=== PATIENT | female | born 1940 | race Caucasian/White ===

== ENCOUNTER 2017-04-08 10:31 | Inpatient (IN) | payer MEDICARE ==
[2017-04-08] MEDS ORDERED: Aspirin Low Dose CHEW TAB* 81 MG PO ONE (10:58)
--- NOTE | 2017-04-08 11:26 | RAD ---
HISTORY: Chest pain, shortness of breath COMPARISONS: January 21, 2015 VIEWS:1: Single frontal portable view of the chest at 11:00 AM FINDINGS: LINES AND TUBES: None. CARDIOMEDIASTINAL SILHOUETTE: The cardiomediastinal silhouette is normal for portable technique. PLEURA: The costophrenic angles are sharp. No pleural abnormalities are noted. LUNG PARENCHYMA: The lungs are clear. ABDOMEN: The upper abdomen is clear. There is no subphrenic gas. Surgical clips are noted within the upper abdomen. BONES AND SOFT TISSUES: No bone or soft tissue abnormalities are noted. IMPRESSION: NO ACTIVE CARDIOPULMONARY DISEASE.
[2017-04-08 11:32] LABS: Hematocrit 42 % (35-47); Hemoglobin 14.1 g/dl (12.0-16.0); Mean Corpuscular HGB Conc 33 g/dl (31-36); Mean Corpuscular Hemoglobin 26 pg (27-31); Mean Corpuscular Volume 79 fL (80-97); Mean Platelet Volume 10 um3 (7.4-10.4); Red Blood Count 5.33 10^6/ul (4.0-5.4); Red Cell Distribution Width 15 % (10.5-15); White Blood Count 9.1 10^3/ul (3.5-10.8)
[2017-04-08] MEDS ORDERED: Nitroglycerin TAB 0.4 MG* 0.4 MG TAB SL ONE (11:40)
[2017-04-08 11:47] LABS: Albumin 4.4 g/dL (3.2-5.2); BUN/Creatinine Ratio 15.7 (8-20); EGFR African American 104.4 (>60); EGFR Non-African American 81.1 (>60); Globulin 3.1 g/dL (2-4); Potassium 3.8 mmol/L (3.5-5.0); Total Protein 7.5 g/dL (6.4-8.9)
[2017-04-08 11:50] LABS: Troponin I 0.01 ng/mL (<0.04)
[2017-04-08] MEDS ORDERED: Iohexol 350* (CONTRAST) 500 ML MDV IV ONE (12:11)
[2017-04-08] MEDS ORDERED: Ondansetron INJ* 2 MG/ML VIAL IV ONE (12:37)
--- NOTE | 2017-04-08 13:08 | RAD ---
HISTORY: Chest pain, aortic aneurysm COMPARISONS: CT dated July 30, 2009 TECHNIQUE: Multiple contiguous axial CT scans were obtained of the chest, abdomen, and pelvis after the administration of intravenous contrast. Coronal and sagittal multiplanar reformations are submitted for review.. Oral contrast was not administered. 3-D volumetric reconstructions are also submitted of the aorta FINDINGS: CHEST NECK AND THYROID: The lower neck and thyroid are unremarkable. CHEST WALL: There is no lower cervical, axillary, or supraclavicular lymphadenopathy by size criteria. HEART AND PERICARDIUM: The heart is unremarkable. AORTA AND PULMONARY VASCULATURE: There is mild atherosclerosis of the descending thoracic aorta. There is There is minimal dilatation or intimal flap. The pulmonary vasculature is unremarkable. MEDIASTINUM: There is no mediastinal lymphadenopathy by size criteria. FRANKI: There is no hilar lymphadenopathy by size criteria. AIRWAY AND ESOPHAGUS: There is moderate sized hiatal hernia LUNG PARENCHYMA: The lungs are clear. PLEURA: No pleural abnormalities are noted. BONES AND SOFT TISSUES: Mild degenerative changes are noted ABDOMEN/PELVIS: LIVER: The liver is normal in shape, size, contour, and attenuation. BILE DUCTS: There is no intrahepatic or extrahepatic biliary dilatation. GALLBLADDER: The gallbladder is normal, without pericholecystic inflammatory change. PANCREAS: The pancreas is normal, without mass or ductal dilatation. SPLEEN: Normal in size and appearance. UPPER GI TRACT: Evaluation of the gastrointestinal tract is limited by incomplete gastric distention. As noted above, there is a moderate sized hiatal hernia SMALL BOWEL \T\ MESENTERY: The small bowel is normal in contour, course, and caliber. There is no obstruction or dilatation. COLON: There are multiple diverticula of the distal colon. There is no pericolonic inflammatory change. ADRENALS: Normal bilaterally. KIDNEYS: There are multiple cysts of the kidneys bilaterally. There is no appreciable hydronephrosis or nephrolithiasis BLADDER: The bladder is collapsed and is not well evaluated PELVIC ORGANS: The pelvic organs are not seen. There is a complex cystic lesion of the right hemipelvis measuring up to 7 cm in size with internal septation. This is persistent when compared to July 30, 2009. AORTA: There is calcific atherosclerotic disease of the abdominal aorta and its branches, without aneurysmal dilatation IVC: Unremarkable LYMPH NODES: There is no lymphadenopathy by size criteria. ABDOMINAL WALL: There is no evidence for abdominal wall hernia. BONES: Mild degenerative changes are noted OTHER: None IMPRESSION: 1. NO AORTIC DISSECTION OR ANEURYSMAL DILATATION. 2. MILD ATHEROSCLEROSIS. 3. HIATAL HERNIA. 4. THERE IS A 7 CM CYSTIC LESION OF THE RIGHT HEMIPELVIS, PERSISTENT FROM 2008. THE DIFFERENTIAL INCLUDES CYSTADENOMA VERSUS CYSTADENOCARCINOMA. RECOMMEND CONSIDERATION OF GYNECOLOGIC CONSULTATION. 5. DIVERTICULOSIS
[2017-04-08] MEDS ORDERED: NS 0.9% 1000 ML* 1,000 ML IV ONE (13:56)
[2017-04-08] MEDS ORDERED: Ondansetron INJ* 2 MG/ML VIAL IV PRN (16:03)
[2017-04-08] MEDS ORDERED: Acetaminophen TAB* 325 MG PO PRN (16:04)
[2017-04-08] MEDS ORDERED: Nitroglycerin 2% OINT* 1 GM PAK TOPICAL ONE (16:07)
[2017-04-08 16:15] LABS: Magnesium 2.2 mg/dL (1.9-2.7)
[2017-04-08 16:22] LABS: TSH (Thyroid Stimulating Horm) 2.09 mcIU/mL (0.34-5.60)
[2017-04-08] MEDS: Enoxaparin(*) 40 MG/0.4 ML SYR SUBCUT SCH (16:46)
[2017-04-08] MEDS ORDERED: Carvedilol TAB* 25 MG PO SCH (21:00)
[2017-04-08] MEDS ORDERED: Simvastatin TAB(NF) 20 MG TAB PO SCH (21:00)
[2017-04-08] MEDS: Metoprolol Tartrate TAB* 50 mg PO SCH (21:11)
[2017-04-08] MEDS: Mometasone 220 MCG MDI INH SCH (21:24)
--- NOTE | 2017-04-08 23:08 | HP ---
ADDENDUM NOW INCLUDED ON THIS REPORT CC: Dr. Mumtaz Yoder MD; Dr. Mcelroy, [facility] * HISTORY AND PHYSICAL: DATE OF ADMISSION: 04/08/17 PROVIDER: Lashawn Greene NP ATTENDING PHYSICIAN: Maxine Cannon MD * (as dictated by Lashawn Greene NP) PRIMARY CARE PROVIDER: Dr. Mumtaz Yoder. PRIMARY FITNESS SALES ASSOCIATE: Dr. Mcelroy. CHIEF COMPLAINT: Chest pain. HISTORY OF PRESENT ILLNESS: Ms. Roman is a 76-year-old female who presented to the ER today with concern for chest pain. She states that the pain started earlier this morning in the midchest and she describes it as tightness. The pain progressed to the feeling of the patient describes as "stabbing between her shoulder blades." The patient has been constant. The patient reports a history of chest pain that comes and goes, but this pain did not let up. At this point, she decided to come into the ER for further evaluation. Here in the ER, she received aspirin and nitroglycerin, which has improved her chest pain, but not completely eradicated. She also describes a feeling of tightness in her throat, which felt like her throat was closing up, dizziness, more so with movement, diaphoresis, nausea and near syncope. The patient denies any history of blood clots, but does endorse a history of coronary artery disease, hypertension, hyperlipidemia. She also reports over the past few months that she has had worsening activity tolerance requiring her to take multiple breaks. Her daughter notes that she has difficulty putting on her shoes without getting winded. She reports that sleeps sitting up in a chair and she reports a chronic lower extremity swelling that is intermittent. She reports decreased appetite as of recently. She denies any wheezing. She denies any cold or flu symptoms or fevers. She does state that she has had a 9- pound weight loss over the past several months and has most recently been weighed at 150. She had this weight loss, but was not attempting to lose weight. This morning, she did endorse some palpitations, that of note she did arrive to the ER in atrial fibrillation with a rate of 145. She denies any dyspnea, cough. She denies any abdominal pain, nausea, vomiting, or diarrhea. She does have constipation on occasion. She denies any dysuria, but does report that she gets recurrent UTIs, but none recently. She follows with Urology for this. Denies any focal weakness, change of the vision, hearing, swallowing, joint pains, muscle pains or rashes. Here in the ER again, the patient's EKG was significant for atrial fibrillation with a rate of 145. Her initial troponin was 0.01. She did have a chest x-ray , which showed no active cardiopulmonary disease, and a CT of the chest, abdomen and pelvis with the impression of: 1. No aortic dissection or aneurysmal dilatation. 2. Mild atherosclerosis. 3. Hiatal hernia. 4. 7 cm cystic lesion of the right hemipelvis, persistent from 2008. 5. Diverticulosis. The patient notably did convert into sinus rhythm while she is here and is currently in sinus rhythm with some PVCs at a rate of 60. PAST MEDICAL HISTORY: Includes: 1. Coronary artery disease. 2. Hypertension. 3. Hyperlipidemia. 4. GERD. 5. History of ablation secondary to atrial fibrillation. PAST SURGICAL HISTORY: Includes: 1. Appendectomy. 2. Cataract surgery. 3. Hiatal hernia. 4. Tonsillectomy. 5. Hysterectomy. ALLERGIES: Include PENICILLINS, CODEINE, TRAMADOL and MUSHROOMS. FAMILY HISTORY: The patient reports a mother, who had an GA and 2 brothers with heart disease, one brother is status post CABG and pacemaker placement. She reports at 49, has had a CVA. Mother also had an ovarian cancer and her father had kidney cancer. SOCIAL HISTORY: She denies former recurrent tobacco use. She reports very seldom alcohol use and denies any history of recreational drug use. She lives alone and is independent with her ADLs. She has no current home services. Her family does check in on her. Her daughter, Trang Roman, is her healthcare proxy. She can be reached at [phone]. REVIEW OF SYSTEMS: As per HPI. PHYSICAL EXAMINATION GENERAL: Ms. Roman is a 76-year-old female, who is lying in the ED stretcher, in no acute distress. VITAL SIGNS: Temperature 98.3, heart rate 60, respiratory rate 16, blood pressure 168/64 and O2 saturation 99% on room air. HEENT: Head is atraumatic, normocephalic. Face is symmetrical. Pupils are equal, round, reactive to light. Extraocular movements are intact Sclerae are anicteric. There is no oropharyngeal erythema or exudate. Mucous membranes appear moist. NECK: Supple, no lymphadenopathy noted. No carotid bruits. No JVD noted. RESPIRATORY: Lungs are clear to auscultation. No accessory muscle use. CARDIAC: S1, S2 heart sounds. Regular rate and rhythm. No murmurs, rubs or gallops. There is no peripheral edema at this time. Distal pulses are 2+ and equal bilaterally. ABDOMEN: Soft, nontender, nondistended. Bowel sounds present times all 4 quadrants. MUSCULOSKELETAL: No clubbing or cyanosis present. The patient appears to have full range of motion in all extremities. SKIN: Grossly intact. NEUROLOGIC: Cranial nerves II through XII are grossly intact. The patient moves all extremities. No new focal deficits. Lower extremities are intact to light touch. PSYCH: She is alert and oriented x3 and a good historian. Affect is appropriate. LABORATORY DATA AND DIAGNOSTIC STUDIES: CBC: WBC 9.1, hemoglobin 14.1, hematocrit 42, platelet count 219. D-dimer 230. CMP: Sodium 140, potassium 3.8, chloride 107, carbon dioxide 24, BUN 11, creatinine 0.7, glucose 134, lactic acid 1.6. Calcium 10.0. Total bilirubin 1, AST 17, ALT 12, alk phos 90. Troponin 0.01 and then 0.03. Albumin is 4.4. Chest x-ray, EKG, and CTA, chest abdomen and pelvis as per above. ASSESSMENT AND PLAN: Ms. Roman is a 76-year-old female who presents today with concern for chest pain. She will be admitted to the telemetry for plans as follows: 1. Chest pain. This may be secondary to the patient's rapid atrial fibrillation, which has since resolved; however, she does still has some residual chest pain and with her story, there was concern for acute coronary syndrome. We will continue to trend her troponins. Recheck an EKG and obtain echocardiogram tomorrow and a stress test on Monday. I will give the patient nitroglycerin ointment to the chest to eradicate her chest pain and continue to monitor her on telemetry. There is concern for cardiomyopathy, heart failure given that she does have a history of atrial fibrillation. Although, the patient does seem to realize when she is in atrial fibrillation; however, her story is concerning for increased activity intolerance, orthopnea, and near syncopal episodes. We will continue her on a heart healthy diet. The patient does state that she follows a low sodium diet at home. 2. History of atrial fibrillation, currently in sinus rhythm. The patient self converted. We are attempting to obtain her home medications via her pharmacy. I do see that she may have been on carvedilol, which I will restart and we will update her medications once confirmed. The patient states that she is not on chronic anticoagulation. 3. Hypertension. Continue home medications once confirmed. The patient is mildly hypertensive at this time. 4. Hyperlipidemia. Continue statin once confirmed dosing. We will recheck a lipid profile in the morning. 5. Gastroesophageal reflux disease. Continue PPIs. 6. History of coronary artery disease. The patient denies any history of stents. Continue aspirin and beta-minnie and statins home medications confirmed. 7. FEN. The patient is ordered a heart healthy diet. 8. DVT prophylaxis. Subcu Lovenox. 9. Code status. The patient is a full code. TIME SPENT: Time spent on this admission was approximately 60 minutes, more than half that time was spent [id number] with the patient obtaining history and physical, performing physical examination and reviewing plan of care. Plan of care was also reviewed with my attending, Dr. Cannon, who is in agreement. LASHAWN GREENE NP ADDENDUM: HOME MEDICATIONS: 1. Omeprazole 20 mg daily. 2. Metoprolol tartrate 50 mg t.i.d. 3. Fluticasone Diskus 2 puffs inhaled b.i.d. 4. Simvastatin 40 mg at bedtime. 5. Rosuvastatin 20 mg at 1700. 6. Potassium chloride 20 mEq daily. 7. Enalapril 10 mg daily. 8. Diltiazem 240 mg daily. LASHAWN GREENE NP [id number]/[facility] #: [id number]/CPS #: [id number] JESÚS
[2017-04-09 00:12] LABS: Urine Bacteria Absent (Absent); Urine Bilirubin Negative (Negative); Urine Glucose 1+(50 mg/dL) (Negative); Urine Nitrite Negative (Negative)
--- NOTE | 2017-04-09 01:27 | HP ---
HISTORY AND PHYSICAL:* ADDENDUM: HOME MEDICATIONS: 1. Omeprazole 20 mg daily. 2. Metoprolol tartrate 50 mg t.i.d. 3. Fluticasone Diskus 2 puffs inhaled b.i.d. 4. Simvastatin 40 mg at bedtime. 5. Rosuvastatin 20 mg at 1700. 6. Potassium chloride 20 mEq daily. 7. Enalapril 10 mg daily. 8. Diltiazem 240 mg daily. LASHAWN GREENE, CNC LAT[employer] MACHINIST [id number]/[facility] #: [id number] JESÚS
[2017-04-09 05:11] LABS: Hematocrit 33 % (35-47); Mean Corpuscular HGB Conc 33 g/dl (31-36); Mean Corpuscular Hemoglobin 27 pg (27-31); Mean Corpuscular Volume 80 fL (80-97); Mean Platelet Volume 10 um3 (7.4-10.4); Red Blood Count 4.12 10^6/ul (4.0-5.4); Red Cell Distribution Width 15 % (10.5-15); White Blood Count 8.7 10^3/ul (3.5-10.8)
[2017-04-09 05:27] LABS: Calcium 8.9 mg/dL (8.6-10.3); EGFR African American 88.2 (>60); EGFR Non-African American 68.6 (>60); HDL Cholesterol 22.9 mg/dL; Potassium 3.8 mmol/L (3.5-5.0)
[2017-04-09] MEDS: Omeprazole CAP* 20 MG PO SCH (08:12)
[2017-04-09] MEDS: Enalapril TAB* 5 MG PO SCH (08:12)
[2017-04-09] MEDS: Aspirin Low Dose CHEW TAB* 81 MG PO SCH (08:12)
[2017-04-09] MEDS: Metoprolol Tartrate TAB* 50 mg PO SCH ×3 (08:12→20:43)
[2017-04-09] MEDS: Potassium Chlor TAB* 20 MEQ TAB.ER PO SCH (08:12)
--- NOTE | 2017-04-09 08:52 | PN ---
Subjective Date of Service: 04/09/17 Interval History: No more palpitations or chest tightness. Feels much better. No SOB. No new c/ o. Objective Active Medications: Acetaminophen (Tylenol Tab*) 650 mg PO Q4H PRN PRN Reason: FEVER/PAIN Aspirin (Aspirin Low Dose Tab*) 81 mg PO DAILY [facility] Last Admin: 04/09/17 08:12 Dose: 81 mg Atorvastatin Calcium (Lipitor*) 40 mg PO 1700 [facility] Diltiazem HCl (Cardizem Cd Cap*) 240 mg PO DAILY [facility] Last Admin: 04/09/17 08:12 Dose: 240 mg Enalapril Maleate (Vasotec Tab*) 10 mg PO DAILY [facility] Last Admin: 04/09/17 08:12 Dose: 10 mg Enoxaparin Sodium (Lovenox(*)) 40 mg SUBCUT Q24H [facility] Last Admin: 04/08/17 16:46 Dose: 40 mg Metoprolol Tartrate (Lopressor Tab*) 50 mg PO TID [facility] Last Admin: 04/09/17 08:12 Dose: 50 mg Mometasone Furoate (Asmanex 220 Mcg Mdi *) 1 puff INH QPM [facility] Last Admin: 04/08/17 21:24 Dose: Not Given Omeprazole (Prilosec Cap*) 20 mg PO DAILY@0730 [facility] Last Admin: 04/09/17 08:12 Dose: 20 mg Ondansetron HCl (Zofran Inj*) 4 mg IV Q6H PRN PRN Reason: NAUSEA Potassium Chloride (Klor Con Er Tab*) 20 meq PO DAILY [facility] Last Admin: 04/09/17 08:12 Dose: 20 meq Vital Signs 04/08/17 04/08/17 04/08/17 14:48 15:00 15:03 Temperature Pulse Rate 54 55 Respiratory 23 11 Rate Blood Pressure 146/64 (mmHg) O2 Sat by Pulse 99 99 98 Oximetry 04/08/17 04/08/17 04/08/17 15:09 15:30 16:21 Temperature 98.3 F Pulse Rate 55 63 Respiratory 12 11 16 Rate Blood Pressure 168/64 140/63 151/68 (mmHg) O2 Sat by Pulse 99 100 Oximetry 04/08/17 04/08/17 04/08/17 18:09 18:15 19:08 Temperature 97.8 F Pulse Rate 73 83 63 Respiratory 16 Rate Blood Pressure 129/60 128/57 129/52 (mmHg) O2 Sat by Pulse 99 98 Oximetry 04/08/17 04/08/17 04/09/17 19:23 23:44 04:45 Temperature 97.8 F 97.9 F Pulse Rate 52 66 Respiratory 16 16 16 Rate Blood Pressure 126/58 122/54 (mmHg) O2 Sat by Pulse 99 96 Oximetry 04/09/17 04/09/17 04/09/17 07:17 07:39 08:04 Temperature 97.7 F Pulse Rate 67 68 Respiratory 18 16 Rate Blood Pressure 136/64 (mmHg) O2 Sat by Pulse 97 Oximetry Oxygen Devices in Use Now: None Appearance: Alert, partly up in bed. In good spirits. Looks comfortable. Eyes: No Scleral Icterus Neck: NL Appearance and Movements; NL JVP, No Thyroid Enlargement, Masses Respiratory: Symmetrical Chest Expansion and Respiratory Effort, Clear to Auscultation, Clear to Percussion Cardiovascular: NL Sounds; No Murmurs; No JVD, No Edema, - - irreg Extremities: No Edema, No Clubbing, Cyanosis, - Skin: No Rash or Ulcers, No Nodules or Sclerosis, - Neurological: Alert and Oriented x 3, NL Sensation Result Diagrams: 04/09/17 04:57 04/09/17 04:57 Assess/Plan/Problems-Billing Assessment: - Patient Problems (1) Atrial fibrillation Current Visit: Yes Status: Acute Code(s): I48.91 - UNSPECIFIED ATRIAL FIBRILLATION SNOMED Code(s): 48517966 Comment: Echo pending. Increase metoprolol to 100 mg bid as her rate in a fib was over 140. Continue diltiazem. TSH wnll 04/08/17. Should start antiocagulation for a fib when stress test done, unless surgery anticipated. (2) Hx of coronary artery disease Current Visit: No Status: Chronic Priority: Medium Code(s): Z86.79 - PERSONAL HISTORY OF OTHER DISEASES OF THE CIRCULATORY SYSTEM SNOMED Code(s): 254737219 Comment: Stress test 04/10/17. Continue ASA, statin, BB. Note neg stress test 12/2014. (3) History of gastroesophageal reflux (GERD) Current Visit: No Status: Chronic Priority: Medium Code(s): Z87.19 - PERSONAL HISTORY OF OTHER DISEASES OF THE DIGESTIVE SYSTEM SNOMED Code(s): 66273079704910 Comment: Continue PPI. (4) History of hypertension Current Visit: No Status: Chronic Priority: Medium Code(s): Z86.79 - PERSONAL HISTORY OF OTHER DISEASES OF THE CIRCULATORY SYSTEM SNOMED Code(s): 793044296 Comment: Increase metoprolol as above. Continue enalapril, diltiazem.
[2017-04-09] MEDS ORDERED: Diltiazem CD CAP* 240 MG PO SCH (09:00)
[2017-04-09] MEDS: Atorvastatin* 40 MG TAB PO SCH (17:03)
[2017-04-09] MEDS: Enoxaparin(*) 40 MG/0.4 ML SYR SUBCUT SCH (17:04)
[2017-04-09] MEDS: Mometasone 220 MCG MDI INH SCH (21:40)
--- NOTE | 2017-04-09 22:38 | ED ---
Chip Ramirez Thomas, scribed for Vijay Rose MD on 04/08/17 at 1117 . HPI Chest Pain - HPI Summary HPI Summary: The pt is a 76 y/o presenting to the ED c/o CP. The pain radiates to the jaw and between her shoulder blades. The pain was first rated 8/10 but is now a 4/ 10 in the room. The pt additionally c/o SOB, weakness, diaphoresis, and cold feet. The pt denies fever. PMHx: HTN, HLD. FHx: NH, cardiac disease. PSHx: cardiac ablation (late ). The pt denies a history of aneurysms. Her building associate is Dr. Lopez. The pt has not yet had ASA today. The pt states generalized illness for 3 days, where she was ambulatory but did "not feel well " and says that she was "feeling the heat". 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 Negative: Fever - Allergy/Home Medications Allergies/Adverse Reactions: Allergies Allergy/AdvReac Type Severity Reaction Status Date / Time Penicillins Allergy Intermediate Hives Verified 09/27/15 07:17 Codeine Allergy INTERNAL Verified 09/27/15 07:17 ITCHING Tramadol Allergy Rash Verified 09/27/15 07:17 MUSHROOMS Allergy RASH, Uncoded 09/27/15 07:17 THROAT CLOSES Home Medications: Home Medications Diltiazem HCl Coated Beads [Cartia Xt] 240 mg PO DAILY 04/08/17 [History Confirmed 04/08/17] Enalapril Maleate [Enalapril Maleate] 10 mg PO DAILY 04/08/17 [History Confirmed 04/08/17] Potassium Chlor TAB* [Klor Con ER TAB*] 20 meq PO DAILY 04/08/17 [History Confirmed 04/08/17] Rosuvastatin (NF) [Crestor (NF)] 20 mg PO 1700 04/08/17 [History Confirmed 04/08] PMH/Surg Hx/FS Hx/Imm Hx Previously Healthy: No Endocrine/Hematology History: Reports: Hx Anemia Cardiovascular History: Reports: Hx Angina, Hx Coronary Artery Disease - HX ABLATION, Hx Hypercholesterolemia, Hx Hypertension, Other Cardiovascular Problems/Disorders - CARDIAC ABLATION 1996 Respiratory History: Reports: Hx Asthma - WILL BRING INHALERS,ALLERGIES, Hx Pneumonia Musculoskeletal History: Reports: Hx Arthritis - HANDS, HIPS, FEET,, Hx Tendonitis - RIGHT WRIST Sensory History: Reports: Hx Cataracts - WALT, Hx Contacts or Glasses Denies: Hx Hearing Aid Opthamlomology History: Reports: Hx Cataracts - WALT, Hx Contacts or Glasses Neurological History: Reports: Hx Headaches - Surgical History Surgery Procedure, Year, and Place: 1996, CARDIAC ABLATION, [facility]. TONSILECTOMY A CHILD. APPENDECTOMY A CHILD. [place], [place], [facility] [place] cataracts both eyes. HIATAL HERNIA 1983, [facility] [place]. HYSTERECTOMY, 1967 PARTIAL, 1973, COMPLETE. CYSTS FROM GROIN, 2008, [facility] Hx Anesthesia Reactions: Yes - N/V Infectious Disease History: Denies: Hx Clostridium Difficile, Hx Hepatitis, Hx Human Immunodeficiency Virus (HIV), Hx of Known/Suspected MRSA, Hx Shingles, Hx Tuberculosis, Hx Known/ Suspected VRE, Hx Known/Suspected VRSA, History Other Infectious Disease, Traveled Outside the in Last 30 Days - Family History Known Family History: Positive: Hypertension - Social History Alcohol Use: Rare Alcohol Amount: 1 Q 2-3 MONTHS Substance Use Type: Reports: None Smoking Status (MU): Never Smoked Tobacco Have You Smoked in the Last Year: No Review of Systems Constitutional: Negative Negative: Fever, Chills Eyes: Negative Negative: Erythema - eyes ENT: Negative Negative: Sore Throat Positive: Chest Pain - radiates to jaw and "between shoulder blades Positive: Shortness Of Breath. Negative: Cough Gastrointestinal: Negative Negative: Abdominal Pain, Vomiting, Nausea Genitourinary: Negative Negative: dysuria, hematuria Musculoskeletal: Other - POS: "cold feet" Negative: Myalgia, Edema - leg Skin: Negative Negative: Rash Neurological: Other - NEG: dizziness Positive: Weakness Psychological: Normal All Other Systems Reviewed And Are Negative: Yes Physical Exam - Summary Physical Exam Summary: Constitutional: Well-developed, Well-nourished, Alert. (-) Distressed Skin: Warm, Dry HENT: Normocephalic; Atraumatic Eyes: Conjunctiva normal Neck: Musculoskeletal ROM normal neck. (-) JVD, (-) Stridor, (-) Tracheal deviation Cardio: Rhythm regular, rate normal, Heart sounds normal; Intact distal pulses; The pedal pulses are 2+ and symmetric. Radial pulses are 2+ and symmetric. (-) Murmur Pulmonary/Chest wall: Effort normal. (-) Respiratory distress, (-) Wheezes, (-) Rales Abd: Soft, (-) Tenderness, (-) Distension, (-) Guarding, (-) Rebound Musculoskeletal: (-) Edema Lymph: (-) Cervical adenopathy Neuro: Alert, Oriented x3 Psych: Mood and affect Normal Triage Information Reviewed: Yes Vital Signs On Initial Exam: Initial Vitals Temp Pulse Resp BP Pulse Ox 97.3 F 71 20 129/64 98 04/08/17 10:44 04/08/17 10:44 04/08/17 10:44 04/08/17 10:44 04/08/17 10:44 Vital Signs Reviewed: Yes Diagnostics - Vital Signs Vital Signs Temp Pulse Resp BP Pulse Ox 04/08/17 10:44 97.3 F 71 20 129/64 98 - Laboratory Result Diagrams: 04/08/17 11:20 04/08/17 11:20 Lab Statement: Any lab studies that have been ordered have been reviewed, and results considered in the medical decision making process. - Radiology CXR Xray Interpretation: No Acute Changes - No active cardiopulmonary disease Radiology Interpretation Completed By: Radiologist - CT CTA Chest/Abdomen/Pelvis CT Interpretation: No Acute Changes - 1. NO AORTIC DISSECTION OR ANEURYSMAL DILATATION. 2. MILD ATHEROSCLEROSIS. 3. HIATAL HERNIA. 4. THERE IS A 7 CM CYSTIC LESION OF THE RIGHT HEMIPELVIS, PERSISTENT FROM 2008. THE DIFFERENTIAL INCLUDES CYSTADENOMA VERSUS CYSTADENOCARCINOMA. RECOMMEND CONSIDERATION OF GYNECOLOGIC CONSULTATION. 5. DIVERTICULOSIS CT Interpretation Completed By: Radiologist - EKG 10:54 Cardiac Rate: Tachycardia - 145 BPM EKG Interpretation: A-Fib with rapid V-rate. No STEMI. Re-Evaluation - Re-Evaluation First Eval Re-Evaluation Time: 13:55 Change: Improved - She is feeling better after NTG. Previously, she was A-Fib with RVR. On re-eval, she is back to NSR. Chest Pain Course/Dx - Course Assessment/Plan: The pt is a 76 y/o presenting to the ED c/o CP. The pain radiates to the jaw and between her shoulder blades. The pain was first rated 8/ 10 but is now a 4/10 in the room. The pt additionally c/o SOB, weakness, diaphoresis, and cold feet. The pt denies fever. PMHx: HTN, HLD. FHx: NH, cardiac disease. PSHx: cardiac ablation (late ). The pt denies a history of aneurysms. Her building associate is Dr. Lopez. The pt has not yet had ASA today. The pt states generalized illness for 3 days, where she was ambulatory but did "not feel well" and says that she was "feeling the heat". A CXR revealed no active cardiopulmonary disease. A CTA Chest/Abd/Pel revealed NO AORTIC DISSECTION OR ANEURYSMAL DILATATION. 2. MILD ATHEROSCLEROSIS. 3. HIATAL HERNIA. 4. THERE IS A 7 CM CYSTIC LESION OF THE RIGHT HEMIPELVIS, PERSISTENT FROM 2008. THE DIFFERENTIAL INCLUDES CYSTADENOMA VERSUS CYSTADENOCARCINOMA. RECOMMEND CONSIDERATION OF GYNECOLOGIC CONSULTATION. 5. DIVERTICULOSIS. An EKG revealed tachycardia, A-Fib with rapid V-rate. No STEMI. The pt was re-evaluated and she is feeling better after NTG. Previously , she was A-Fib with RVR. On re-eval, she is back to NSR. Bloodwork revealed MCV 79, MCH 26, Lymph% 22.5, glucose 134. She was diagnosed with Atrial fibrillation with rapid ventricular response. In the ED course she was given acetaminophen, ASA, carvedilol, enoxaparin sodium, ondasteron. Dr. Maxine Montero was consulted, who discussed the pt and admitted the pt. - Diagnoses Provider Diagnoses: Atrial fibrillation with rapid ventricular response - Provider Notifications Discussed Care Of Patient With: Maxine Montero Time Discussed With Above Provider: 14:20 Discharge - Discharge Plan Condition: Stable Disposition: ADMITTED TO [facility] documentation as recorded by the Chip dao Thomas accurately reflects the service I personally performed and the decisions made by me, Vijay Rose MD.
--- NOTE | 2017-04-10 02:38 | PN ---
Progress Note - Progress Note Date of Service: 04/10/17 Note: Paged that patient has been sinus saman in high 30's for most of the evening. Patient is asymptomatic with normal BP. Will d/c morning diltiazem.
[2017-04-10] MEDS ORDERED: Regadenoson* 0.4 MG/5 ML SYRINGE ONE (11:16)
--- NOTE | 2017-04-10 11:21 | ECHO ---
Patient: CORDELL KELLER [facility] Rec#: [id number] : 1940 Date: 04/10/2017 Age: 76y Height: 157.48 cm / 62.0 in Weight: 68.04 kg / 150.0 lbs Sex: F BSA: 1.69 Room#: 439 Admit Date#: 04/09/2017 Type: Inpatient Referring: Anh Dent Reading: Ugo Oglesby MD Remote Sensing Specialist: Aziza Gamboa,CHRISTINECS,RDMS CC: Mumtaz Yoder MD Transthoracic Echocardiogram Indication: CP, AFIB BP: 146/50 HR: 52 Rhythm: Bradycardia Findings History: CAD, HTN, HLD, GERD, AFIB Technical Comments: The study quality is good. Completed 954 Left Ventricle: The left ventricular chamber size is decreased. Mild to moderate concentric left ventricular hypertrophy is observed. There is normal left ventricular systolic function. The estimated ejection fraction is 55-60%. There is no consistent Doppler evidence of clinically significant diastolic dysfunction. Left Atrium: The left atrium is mildly dilated. Right Ventricle: The right ventricular chamber size and systolic function are within normal limits. Right Atrium: The right atrium is slightly dilated. Aortic Valve: The aortic valve is trileaflet. There is trace to mild aortic regurgitation. There is no evidence of aortic stenosis. Mitral Valve: The mitral valve leaflets appear normal. There is a trace of mitral regurgitation. There is no evidence of mitral stenosis. Tricuspid Valve: The tricuspid valve leaflets are normal. There is trace tricuspid regurgitation. No pulmonary hypertension is noted. Pulmonic Valve: There is no evidence of pulmonic valve thickening. There is a trace pulmonic regurgitation. Pericardium: A trivial pericardial effusion is visualized. Aorta: There is borderline dilatation of the ascending aorta. There is no dilatation of the aortic arch. There is no dilation of the aortic root. Pulmonary Artery: The main pulmonary artery appears normal. Venous: The inferior vena cava appears normal in size. There is an approximate 50% respiratory change in the inferior vena cava dimension. Conclusions Mild to moderate concentric left ventricular hypertrophy is observed. There is normal left ventricular systolic function. The estimated ejection fraction is 55-60%. There is no evidence of aortic stenosis. There is a trace of mitral regurgitation. There is trace tricuspid regurgitation. A trivial pericardial effusion is visualized. Measurements Name Value Normal Range RVIDd (AP) 2D 2.5 cm (0.9 - 2.6) RVDdMajor (2D) 2.9 cm (2.2 - 4.4) RAd ISD 4CH 5.1 cm (3.4 - 4.9) RA (A4C)W 3.7 cm (2.9 - 4.6) IVSd (2D) 1.4 cm (0.6 - 1) LVPWd (2D) 1.4 cm (0.6 - 1) LVIDd (2D) 3.4 cm (3.6 - 5.4) LVIDs (2D) 2.4 cm - LV FS (2D) 29 % (25 - 45) Aortic Annulus 2 cm (1.4 - 2.6) Ao root diameter (2D) 3.1 cm (2.1 - 3.5) Ascending Ao 3.5 cm (2.1 - 3.4) Aortic arch 2.6 cm (1.8 - 3.4) LA dimension (AP) 2D 3.6 cm (2.3 - 3.8) LAd ISD 4CH 5.6 cm (2.9 - 5.3) LA ISD 4CH W 4 cm (2.5 - 4.5) Name Value Normal Range LA ESV SP 4CH (A/L) 49.54 ml - LA ESV SP 2CH (A/L) 77.07 ml - LA ESV BP (A/L) 64.62 ml - LA ESV BP (A/L) index 38 ml/m2 - LA ESV SP 4CH (MOD) 44.6 ml - LA ESV SP 2CH (MOD) 72.18 ml - Name Value Normal Range MV E-wave Vmax 1 m/sec - MV deceleration time 262 msec - MV A-wave Vmax 0.7 m/sec - MV E:A ratio 1.4 ratio - P. vein S-wave Vmax 0.5 m/sec - P. vein D-wave Vmax 0.5 m/sec - P. vein S:D Vmax ratio 0.9 ratio - P. vein A-wave duration 133 msec - LV septal e' Vmax 0.07 m/sec - LV lateral e' Vmax 0.09 m/sec - LV E:e' septal ratio 14 ratio - LV E:e' lateral ratio 11 ratio - Name Value Normal Range AV Vmax 1.3 m/sec - AV VTI 32 cm - AV peak gradient 7 mmHg - AV mean gradient 3 mmHg - LVOT Vmax 0.9 m/sec - LVOT VTI 23 cm - LVOT peak gradient 3.2 mmHg - LVOT mean gradient 1.44 mmHg - KORY Vmax 0.4 m/sec - Name Value Normal Range TR Vmax 2.2 m/sec - TR peak gradient 19 mmHg - RAP 3 mmHg - RVSP 22 mmHg - IVC diameter 2.1 cm -
--- NOTE | 2017-04-10 12:59 | RAD ---
Edited for charges. INDICATION: Chest pain/heaviness, shortness of breath, hypertension, elevated cholesterol. COMPARISON: January 22, 2015 TECHNIQUE: 10.220 mCi of Tc-99m Myoview were administered IV. SPECT images of the heart were obtained. Later on the same day. Under the direction of Dr. Esparza, the patient was given an IV injection of a pharmacologic stress agent. Subsequently, the patient was given an IV injection of 25.600 mCi Tc-99m Myoview. SPECT images of the heart were obtained and a gated wall motion study was performed. FINDINGS: Gated wall motion images were obtained at stress and demonstrate wall motion to be within normal limits. The calculated left ventricular ejection fraction is 77 % at stress. Estimated LEFT ventricular end diastolic volume is 56 mL. TID 1.02. Based on review of the attenuation corrected and non corrected images the distribution of radiopharmaceutical within the myocardium on the stress and rest images is within normal limits. No fixed or reversible regions of hypoperfusion evident. ASSESSMENT: LOW RISK. Based on imaging criteria from ACC/AHA 2002 Guideline Update for the Management of Patients With Chronic Stable Angina Table 23. Noninvasive Risk Stratification. MTDD
[2017-04-10] MEDS: Enalapril TAB* 5 MG PO SCH (14:11)
[2017-04-10] MEDS: Metoprolol Tartrate TAB* 50 mg PO SCH ×2 (14:11→20:30)
[2017-04-10] MEDS: Omeprazole CAP* 20 MG PO SCH (14:11)
[2017-04-10] MEDS: Potassium Chlor TAB* 20 MEQ TAB.ER PO SCH (14:11)
[2017-04-10] MEDS: Aspirin Low Dose CHEW TAB* 81 MG PO SCH ×2 (14:11→14:13)
[2017-04-10] MEDS ORDERED: Magnesium Hydroxide LIQ* 30 ML UDC PO ONE (14:12)
--- NOTE | 2017-04-10 14:17 | PN ---
Subjective Date of Service: 04/10/17 Interval History: Pt is feeling ok currently. She states she is tired today. She denies any CP or SOB. She states she feels constipated. Objective Active Medications: Acetaminophen (Tylenol Tab*) 650 mg PO Q4H PRN PRN Reason: FEVER/PAIN Apixaban (Eliquis*) 5 mg PO BID [facility] Atorvastatin Calcium (Lipitor*) 40 mg PO 1700 [facility] Last Admin: 04/09/17 17:03 Dose: 40 mg Enalapril Maleate (Vasotec Tab*) 10 mg PO DAILY [facility] Last Admin: 04/09/17 08:12 Dose: 10 mg Metoprolol Tartrate (Lopressor Tab*) 100 mg PO BID [facility] Last Admin: 04/09/17 20:43 Dose: 100 mg Mometasone Furoate (Asmanex 220 Mcg Mdi *) 1 puff INH QPM [facility] Last Admin: 04/09/17 21:40 Dose: 1 puff Omeprazole (Prilosec Cap*) 20 mg PO DAILY@0730 [facility] Last Admin: 04/09/17 08:12 Dose: 20 mg Ondansetron HCl (Zofran Inj*) 4 mg IV Q6H PRN PRN Reason: NAUSEA Potassium Chloride (Klor Con Er Tab*) 20 meq PO DAILY [facility] Last Admin: 04/09/17 08:12 Dose: 20 meq Vital Signs 04/09/17 04/09/17 04/09/17 15:30 19:28 19:32 Temperature 97.5 F 97.9 F Pulse Rate 50 50 51 Respiratory 17 16 Rate Blood Pressure 130/56 139/57 (mmHg) O2 Sat by Pulse 99 99 Oximetry 04/09/17 04/09/17 04/09/17 20:00 21:41 23:25 Temperature 97.7 F Pulse Rate 50 49 Respiratory 16 16 16 Rate Blood Pressure 123/57 (mmHg) O2 Sat by Pulse 99 97 Oximetry 04/10/17 04/10/17 04/10/17 03:14 07:10 08:09 Temperature 97.8 F 97.6 F Pulse Rate 49 45 Respiratory 16 18 20 Rate Blood Pressure 146/50 141/59 (mmHg) O2 Sat by Pulse 97 97 Oximetry Oxygen Devices in Use Now: None Appearance: Elderly female sitting up in bed, NAD Eyes: No Scleral Icterus Ears/Nose/Mouth/Throat: Mucous Membranes Moist Respiratory: Symmetrical Chest Expansion and Respiratory Effort, Clear to Auscultation Cardiovascular: NL Sounds; No Murmurs; No JVD, No Edema, - - bradycardic Abdominal: NL Sounds; No Tenderness; No Distention Extremities: No Clubbing, Cyanosis Skin: No Rash or Ulcers, No Nodules or Sclerosis Neurological: Alert and Oriented x 3 Result Diagrams: 04/09/17 04:57 04/09/17 04:57 Assess/Plan/Problems-Billing Ms Roman is a 76 yo F who has a h/o afib s/p ablation, CAD, HTN, HLD and GERD who presented to the ER with c/o CP and was found to be in rapid afib. - Patient Problems (1) Atrial fibrillation Current Visit: Yes Status: Acute Code(s): I48.91 - UNSPECIFIED ATRIAL FIBRILLATION SNOMED Code(s): 15449820 Comment: The patient has a h/o afib and is s/p ablation. HR is now bradycardic in the 40-50's. Continue metoprolol at increased dose and hold diltiazem due to bradycardia. We have discussed her stroke risk given her age, sex and h/o HTN and she has agreed to being on anticoagulation. We discussed coumadin vs NOAC and she has opted for eliquis. Will start this tonight. (2) CAD (coronary artery disease) Current Visit: Yes Status: Acute Code(s): I25.10 - ATHSCL HEART DISEASE OF [place] CORONARY ARTERY W/O ANG PCTRS SNOMED Code(s): 03555376 Comment: No issues at this time-no further chest pain. The patient's stress test is negative for ischemia and infarct. Continue metoprolol and lipitor. (3) HTN (hypertension) Current Visit: Yes Status: Acute Code(s): I10 - ESSENTIAL (PRIMARY) HYPERTENSION SNOMED Code(s): 58896087 Comment: BP is under fair control. Continue current medciation regimen. Her diltiazem CD has been discontinued due to bradycardia. Will monitor her BP and if necessary make adjustments to her regimen. (4) DVT prophylaxis Current Visit: Yes Status: Acute Code(s): JAA3888 - SNOMED Code(s): 852407313 Comment: start eliquis tonight (5) Full code status Current Visit: Yes Status: Acute Onset Date: 01/21/15 Code(s): Z78.9 - OTHER SPECIFIED HEALTH STATUS SNOMED Code(s): 546683494
[2017-04-10] MEDS: Atorvastatin* 40 MG TAB PO SCH (17:06)
[2017-04-10] MEDS: Mometasone 220 MCG MDI INH SCH (19:46)
[2017-04-10] MEDS: Apixaban* 5 MG TAB PO SCH (20:30)
--- NOTE | 2017-04-11 06:27 | PN ---
Progress Note - Progress Note Date of Service: 04/11/17 Note: Paged for 2.2 second pause, patient HR in 40's persistently. D/C metoprolol
[2017-04-11 07:59] VITALS: BP 142/68
[2017-04-11] MEDS: Potassium Chlor TAB* 20 MEQ TAB.ER PO SCH (08:16)
[2017-04-11] MEDS: Enalapril TAB* 5 MG PO SCH (08:16)
[2017-04-11] MEDS: Apixaban* 5 MG TAB PO SCH (08:17)
[2017-04-11] MEDS: Omeprazole CAP* 20 MG PO SCH (08:17)
--- NOTE | 2017-04-11 10:28 | PN ---
Subjective Date of Service: 04/11/17 Interval History: Pt is feeling well. She feels ready to go home. She denies any SOB or CP. She has been up and walking without any difficulty or lightheadedness. Objective Active Medications: Acetaminophen (Tylenol Tab*) 650 mg PO Q4H PRN PRN Reason: FEVER/PAIN Apixaban (Eliquis*) 5 mg PO BID [facility] Last Admin: 04/11/17 08:17 Dose: 5 mg Atorvastatin Calcium (Lipitor*) 40 mg PO 1700 [facility] Last Admin: 04/10/17 17:06 Dose: 40 mg Enalapril Maleate (Vasotec Tab*) 10 mg PO DAILY [facility] Last Admin: 04/11/17 08:16 Dose: 10 mg Mometasone Furoate (Asmanex 220 Mcg Mdi *) 1 puff INH QPM [facility] Last Admin: 04/10/17 19:46 Dose: 1 puff Omeprazole (Prilosec Cap*) 20 mg PO DAILY@0730 [facility] Last Admin: 04/11/17 08:17 Dose: 20 mg Ondansetron HCl (Zofran Inj*) 4 mg IV Q6H PRN PRN Reason: NAUSEA Potassium Chloride (Klor Con Er Tab*) 20 meq PO DAILY [facility] Last Admin: 04/11/17 08:16 Dose: 20 meq Vital Signs 04/10/17 04/10/17 04/10/17 15:47 19:46 19:52 Temperature 97.9 F 98.2 F Pulse Rate 66 66 65 Respiratory 16 16 20 Rate Blood Pressure 161/69 152/76 (mmHg) O2 Sat by Pulse 98 98 98 Oximetry 04/10/17 04/11/17 04/11/17 20:00 00:24 04:20 Temperature 97.6 F 97.9 F Pulse Rate 62 49 Respiratory 16 16 16 Rate Blood Pressure 155/65 154/61 (mmHg) O2 Sat by Pulse 98 98 Oximetry 04/11/17 04/11/17 07:12 07:58 Temperature 97.8 F Pulse Rate 56 Respiratory 18 18 Rate Blood Pressure 142/68 (mmHg) O2 Sat by Pulse 96 Oximetry Oxygen Devices in Use Now: None Appearance: Elderly female lying in bed, NAD Eyes: No Scleral Icterus Ears/Nose/Mouth/Throat: Mucous Membranes Moist Respiratory: Symmetrical Chest Expansion and Respiratory Effort, Clear to Auscultation Cardiovascular: NL Sounds; No Murmurs; No JVD, No Edema, - - bradycardic but regular Abdominal: NL Sounds; No Tenderness; No Distention Extremities: No Clubbing, Cyanosis Skin: No Rash or Ulcers, No Nodules or Sclerosis Neurological: Alert and Oriented x 3 Result Diagrams: 04/09/17 04:57 04/09/17 04:57 Assess/Plan/Problems-Billing Ms Roman is a 76 yo F who has a h/o afib s/p ablation, CAD, HTN, HLD and GERD who presented to the ER with c/o CP and was found to be in rapid afib. - Patient Problems (1) Atrial fibrillation Current Visit: Yes Status: Acute Code(s): I48.91 - UNSPECIFIED ATRIAL FIBRILLATION SNOMED Code(s): 52172703 Comment: HR remains bradycardic but in sinus rhythm. The patient today informs me that she has not been taking metoprolol at home and was changed to diltiazem a few months ago. At this time given her persistent bradycardia in the 40-50's will stop both the diltiazem and metoprolol. She will need to follow up with her fire observer in the next 1-2 weeks to ensure her HR remains stable. My worry about sending her out not on any medication is that if she goes into afib she will likely be very rapid. Continue eliquis. (2) CAD (coronary artery disease) Current Visit: Yes Status: Acute Code(s): I25.10 - ATHSCL HEART DISEASE OF [place] CORONARY ARTERY W/O ANG PCTRS SNOMED Code(s): 45984254 Comment: No issues at this time-no further chest pain. The patient's stress test is negative for ischemia and infarct. Continue lipitor. (3) HTN (hypertension) Current Visit: Yes Status: Acute Code(s): I10 - ESSENTIAL (PRIMARY) HYPERTENSION SNOMED Code(s): 41037467 Comment: BP is under fair control on just the enalapril. She will need to follow up with her outpatient providers to determine if she needs any adjustments in her regimen. (4) DVT prophylaxis Current Visit: Yes Status: Acute Code(s): VGN7674 - SNOMED Code(s): 932573104 Comment: eliquis (5) Full code status Current Visit: Yes Status: Acute Onset Date: 01/21/15 Code(s): Z78.9 - OTHER SPECIFIED HEALTH STATUS SNOMED Code(s): 123664674
[2017-04-11] MEDS ORDERED: amLODIPine TAB* 5 MG PO SCH (12:00)
== END 2017-04-11 14:10 | disposition home or self-care (01) | DRG 310 ==
LOC: ED 10:31 → MEDTELE 14:34 → OBSVTOIN 04-09 08:43
PROVIDERS: ADMIT Internal Medicine; ATTEND Hospitalist
DX: I48.91 Unspecified atrial fibrillation (principal); I11.9 Hypertensive heart disease without heart failure; I25.10 Atherosclerotic heart disease of native coronary artery without angina pectoris; E78.5 Hyperlipidemia, unspecified; K21.9 Gastro-esophageal reflux disease without esophagitis; Z88.5 Allergy status to narcotic agent; Z88.0 Allergy status to penicillin; Z88.8 Allergy status to other drugs, medicaments and biological substances; Z91.018 Allergy to other foods; Z82.49 Family history of ischemic heart disease and other diseases of the circulatory system; Z80.51 Family history of malignant neoplasm of kidney; Z80.41 Family history of malignant neoplasm of ovary; Z79.899 Other long term (current) drug therapy
CPT/HCPCS: 36415; 71010; 71275; 74174; 78452; 80048; 80053; 80061; 81003; 81015; 83605; 83735; 83880; 84443; 84484; 85025; 85379; 93005; 93017; 93306; 94640; A9270-GY; A9502; G0378; J1650; J2405; J2785; Q9967

== ENCOUNTER 2018-05-21 00:30 | Observation (INO) | payer MEDICARE ==
[2018-05-21] MEDS ORDERED: Ondansetron INJ* 2 MG/ML VIAL IV ONE (00:39)
[2018-05-21] MEDS ORDERED: NS 0.9% 1000 ML* 1,000 ML IV ONE (00:39)
[2018-05-21] MEDS ORDERED: Aspirin 81 mg CHEW TAB* 81 MG TAB.CHEW PO ONE (00:40)
[2018-05-21] MEDS ORDERED: Diltiazem IV* 5 MG/ML 5 ML VIAL (for loading dose/IV Push) (25 MG) IV SLOW PU ONE (00:52)
[2018-05-21] MEDS ORDERED: Diltiazem DRIP* 100 MG/100 ML ADDV.BAG IVPB ONE (00:52)
[2018-05-21 00:59] LABS: ABS Basophils 0.1 10^3/ul (0-0.2); ABS Eosinophils 0.2 10^3/ul (0-0.6); ABS Lymphocytes 2.8 10^3/ul (1.0-4.8); ABS Monocytes 0.6 10^3/ul (0-0.8); ABS Neutrophils 11.6 10^3/ul (1.5-7.7); ABS Nucleated RBC 0 10^3/ul; Eosinophil % 1.6 % (0-6); Hematocrit 41 % (35-47); Hemoglobin 13.8 g/dl (12.0-16.0); Lymphocyte % 18.3 % (25-47); Mean Corpuscular HGB Conc 34 g/dl (31-36); Mean Corpuscular Hemoglobin 26 pg (27-31); Mean Corpuscular Volume 78 fL (80-97); Mean Platelet Volume 9.9 um3 (7.4-10.4); Nucleated Red Blood Cells % 0.1; Platelet Count 280 10^3/ul (150-450); Red Cell Distribution Width 15 % (10.5-15); White Blood Count 15.4 10^3/ul (3.5-10.8)
--- NOTE | 2018-05-21 01:02 | ED ---
HPI Chest Pain - HPI Summary HPI Summary: This is Vipul dao documenting for attending physician Gold Bennett MD. This patient is a 77 year old F BIBA to [facility] with a chief complaint of CP that began 3 hours ago. The patient rates the pain 1/10 in severity and describes it as heaviness. She states the pain radiates into her neck and chin. Patient reports nausea, dizziness, light headedness, and palpitations. Patient denies v/ d and ABD pain. Pt states she has had general malaise for the past 2 days. Pt is on xarelto for afib and she is also on a beta minnie. - History of Current Complaint Chief Complaint: EDChestPainROMI Time Seen by Provider: 05/21/18 00:41 Hx Obtained From: Patient Onset/Duration: Started Hours Ago - 3, Still Present Timing: Constant Initial Severity: Mild Current Severity: Mild Pain Intensity: 1 Pain Scale Used: 0-10 Numeric Chest Pain Location: Diffuse Chest Pain Radiates: Yes Chest Pain Radiates To:: Jaw, Neck Character: Pressure/Squeezing Associated Signs and Symptoms: Positive: Other: - nausea, dizziness, light headedness, palpitations, - Additional Pertinent History Primary Care Physician: [id number] - Allergy/Home Medications Allergies/Adverse Reactions: Allergies Allergy/AdvReac Type Severity Reaction Status Date / Time codeine Allergy See Comment Verified 05/21/18 00:36 Penicillins AdvReac Hives Verified 05/21/18 00:36 tramadol AdvReac Rash Verified 05/21/18 00:36 MUSHROOMS Allergy RASH, Uncoded 09/27/15 07:17 THROAT CLOSES Home Medications: Home Medications Carvedilol [Coreg] 25 mg PO BID 05/21/18 [History Confirmed 05/21/18] dilTIAZem 360 MG 24HR ER (NF) [Diltiazem 360 mg 24Hr ER] 360 mg PO DAILY [History Confirmed 05/21/18] PMH/Surg Hx/FS Hx/Imm Hx Endocrine/Hematology History: Reports: Hx Anemia Denies: Hx Diabetes Cardiovascular History: Reports: Hx Angina, Hx Coronary Artery Disease - HX ABLATION, Hx Hypercholesterolemia, Hx Hypertension, Other Cardiovascular Problems/Disorders - CARDIAC ABLATION 1996 Respiratory History: Reports: Hx Asthma - WILL BRING INHALERS,ALLERGIES, Hx Pneumonia Denies: Hx Chronic Obstructive Pulmonary Disease (COPD) History: Denies: Hx Dialysis Musculoskeletal History: Reports: Hx Arthritis - HANDS, HIPS, FEET,, Hx Tendonitis - RIGHT WRIST Sensory History: Reports: Hx Cataracts - WALT, Hx Contacts or Glasses Denies: Hx Hearing Aid Opthamlomology History: Reports: Hx Cataracts - WALT, Hx Contacts or Glasses Neurological History: Reports: Hx Headaches Denies: Hx Dementia, Hx Seizures - Surgical History Surgery Procedure, Year, and Place: 1996, CARDIAC ABLATION, [facility]. TONSILECTOMY A CHILD. [place]OM[place]ILD. [place], 1970, [facility] [place] eyes. HIATAL HERNIA 1983, [facility] [place] HYSTERECTOMY, 1967 PARTIAL, 1972, COMPLETE. CYSTS FROM GROIN, 2008, [facility] Hx Anesthesia Reactions: Yes - N/V Infectious Disease History: No Infectious Disease History: Denies: Hx Clostridium Difficile, Hx Hepatitis, Hx Human Immunodeficiency Virus (HIV), Hx of Known/Suspected MRSA, Hx Shingles, Hx Tuberculosis, Hx Known/ Suspected VRE, Hx Known/Suspected VRSA, History Other Infectious Disease, Traveled Outside the in Last 30 Days - Family History Known Family History: Positive: Cardiac Disease, Hypertension - Social History Alcohol Use: Rare Alcohol Amount: 1 Q 2-3 MONTHS Substance Use Type: Reports: None Smoking Status (MU): Never Smoked Tobacco Have You Smoked in the Last Year: No Review of Systems Constitutional: Other - general malaise Positive: Palpitations, Chest Pain Positive: Nausea. Negative: Abdominal Pain, Vomiting, Diarrhea Neurological: Other - dizziness and light headedness All Other Systems Reviewed And Are Negative: Yes Physical Exam - Summary Physical Exam Summary: Appearance: Well appearing, no pain distress Skin: warm, dry, reflects adequate perfusion Head/face: normal Eyes: EOMI, BEE ENT: normal, mucus membranes are mosit Neck: supple, non-tender Respiratory: CTA, breath sounds present Cardiovascular: Rapid and irregular, pulses symmetrical Abdomen: non-tender, soft Bowel Sounds: present Musculoskeletal: normal, strength/ROM intact, no edema Neuro: normal, sensory motor intact, A&Ox3 Triage Information Reviewed: Yes Vital Signs On Initial Exam: Initial Vitals Temp Pulse Resp BP Pulse Ox 97.7 F 105 20 142/100 97 05/21/18 00:31 05/21/18 00:31 05/21/18 00:31 05/21/18 00:31 05/21/18 00:31 Vital Signs Reviewed: Yes Diagnostics - Vital Signs Vital Signs Temp Pulse Resp BP Pulse Ox 05/21/18 00:45 96 05/21/18 00:31 97.7 F 105 20 142/100 97 - Laboratory Result Diagrams: 05/21/18 00:49 05/21/18 00:49 Lab Statement: Any lab studies that have been ordered have been reviewed, and results considered in the medical decision making process. - Radiology CXR Radiology Interpretation Completed By: Radiologist - no acute process, pending official report - EKG 0036 Cardiac Rate: Other Rate EKG Rhythm: Atrial Fibrillation - at [address] Segment: Non-Specific EKG Interpretation: nml axis Chest Pain Course/Dx - Course Course Of Treatment: Patient with abrupt onset of palpitations, nausea and chest tightness up into the neck. She is found to have rapid A. fib with a history of atrial fibrillation in the past. Heart rate of over 160. She slowed quickly with IV diltiazem bolus and drip. Her chest discomfort resolved. Her white count and lactate is slightly elevated but there is no indication for sepsis syndrome or inciting event being infection. The urine is negative. Discussed the case with the hospitalist who accepted for admission. The patient is stabilized. - Chest Pain Differential Diagnosis/HQI/PQRI: Other: - Atrial fibrillation rate uncontrolled due to dehydration, primary cardiac cause, pulmonary embolus, coronary event - Diagnoses Provider Diagnoses: Atrial fibrillation with rapid ventricular response, Chest pain - Provider Notifications Discussed Care Of Patient With: Chad Tubbs Time Discussed With Above Provider: 01:42 Instructed by Provider To: Admit As Inpatient - Critical Care Time Critical Care Time: 30-74 min - CCT is EXCLUSIVE of separately billable procedures Discharge - Sign-Out/Discharge Documenting (check all that apply): Patient Departure - admitted - Discharge Plan Condition: Guarded Disposition: ADMITTED TO [facility] - Billing Disposition and Condition Condition: GUARDED Disposition: Admitted to [facility] Attestation Statement Scribe Attestation: This is Vipul dao documenting for attending physician Gold Bennett MD. User Type: Provider with [employer] Provider Attestation: The documentation recorded by the scribe accurately reflects the service I personally performed and the decisions made by me.
[2018-05-21 01:16] LABS: EGFR Non-African American 71.4 (>60)
[2018-05-21 01:20] LABS: INR 2.06 (0.77-1.02)
[2018-05-21 02:41] LABS: Urine Appearance Clear; Urine Blood 2+ (Negative); Urine Color Straw; Urine Ketones Negative (Negative); Urine Protein Negative (Negative); Urine Red Blood Cell 1+(3-5/hpf) (Absent); Urine Specific Gravity 1.005 (1.010-1.030); Urine Urobilinogen Negative (Negative); Urine White Blood Cell Trace(0-5/hpf) (Absent)
--- NOTE | 2018-05-21 02:52 | HP ---
H&P (Free Text) History and Physical: PCP: Ely Yoder MD Date/Time: 05/21/2018 0240 CC: chest pain, palpitations HPI: Mrs Roman is a 77YO female HX AFIB s/p ablation, CAD, HTN, HLD, GERD presents with onset ~2030 last PM of palpitations & chest pressure radiating up into the L jaw associated with SOB, nausea, sweating, and light-headedness. She has had this in the past, but not with the radiation into the jaw. She waited ~ 1H and then told her daughter as it was not going away. Upon arrival to ED, AFIB was confirmed on ECG and rate control obtained via diltiazem bolus/GTT with resolution of her symptoms. However, she remains in atrial fibrillation. PMedHx AFIB s/p ablation, on rivaroxaban CAD HTN HLD GERD Ambulatory Orders Omeprazole CAP* [Prilosec CAP* 20 MG] 20 mg PO DAILY 04/09/14 Fluticasone DISKUS 100 MCG(NF) [Flovent Diskus 100 MCG(NF)] 2 puff INH BID 01/21 Enalapril Maleate 10 mg PO DAILY 04/08/17 Potassium Chlor TAB* [Potassium Chlor TAB 20 MEQ*] 20 meq PO DAILY 04/08/17 Rosuvastatin (NF) [Crestor (NF)] 20 mg PO 1700 04/08/17 Rivaroxaban TAB(*) [Xarelto 20 mg] 20 mg PO DAILY #30 tab 04/11/17 Carvedilol [Coreg] 25 mg PO BID 05/21/18 dilTIAZem 360 MG 24HR ER (NF) [Diltiazem 360 mg 24Hr ER] 360 mg PO DAILY Allergies codeine Allergy (Verified 05/21/18 00:36) See Comment Penicillins Adverse Reaction (Verified 05/21/18 00:36) Hives tramadol Adverse Reaction (Verified 05/21/18 00:36) Rash MUSHROOMS Allergy (Uncoded 09/27/15 07:17) RASH, THROAT CLOSES PSurgHx cataract extraction tonsillectomy hiatal hernia repair appendectomy hysterectomy SocHx: no tobacco HX, rare alcohol, no recreational drugs; lives alone; full code status FamHx: strongly positive for CAD ROS: as above, otherwise reviewed and all were negative vitals: Vital Signs Temp 36.5 C 05/21/18 00:31 Pulse 103 05/21/18 02:52 Resp 18 05/21/18 02:52 BP 124/87 05/21/18 02:52 Pulse Ox 96 05/21/18 02:52 Intake & Output 05/20/18 05/20/18 05/21/18 11:59 23:59 11:59 Intake Total 1000 Balance 1000 Weight 72.121 kg Intake: IV Fluids 1000 Constitutional: NAD, normally developed, overweight elderly white female HEENM: atraumatic; sclera/conjunctiva: anicteric/clear; hearing: clinically intact; oropharynx: clear, mucosa moist Neck: soft tissue: non-tender; thyroid: normal Pulmonary: clear to auscultation bilaterally, good aeration, no accessory muscle use CV: TIR/IR, normal S1S2, no carotid bruit, no jugular venous distention, 2+ B DP /PT, no edema Abdominal: soft, non-distended, non-tender, no rebound/guarding/rigidity, normoactive bowel sounds, no hepatosplenomegaly or masses, no costovertebral angle tenderness Musculoskeletal: general: grossly intact, non-tender Integumental: numerous seborrheic keratoses; otherwise normal appearance and texture of exposed skin Psychiatric orientation: AA&O to PPS affect: calm mood: cooperative, pleasant eye contact: good content: reliable responses: timely insight: good Testing: Lab Results 05/21/18 05/21/18 05/21/18 Range/Units 00:49 00:49 00:49 WBC 15.4 H (3.5-10.8) 10^3/ul RBC 5.30 (4.00-5.40) 10^6/ul Hgb 13.8 (12.0-16.0) g/dl Hct 41 (35-47) % MCV 78 L (80-97) fL MCH 26 L (27-31) pg MCHC 34 (31-36) g/dl RDW 15 (10.5-15) % Plt Count 280 (150-450) 10^3/ul MPV 9.9 (7.4-10.4) um3 Neut % (Auto) 75.7 (38-83) % Lymph % (Auto) 18.3 L (25-47) % Shelby % (Auto) 3.9 (0-7) % Eos % (Auto) 1.6 (0-6) % Baso % (Auto) 0.5 (0-2) % Absolute Neuts (auto) 11.6 H (1.5-7.7) 10^3/ul Absolute Lymphs (auto) 2.8 (1.0-4.8) 10^3/ul Absolute Monos (auto) 0.6 (0-0.8) 10^3/ul Absolute Eos (auto) 0.2 (0-0.6) 10^3/ul Absolute Basos (auto) 0.1 (0-0.2) 10^3/ul Absolute Nucleated RBC 0 10^3/ul Nucleated RBC % 0.1 INR (Anticoag Therapy) (0.77-1.02) APTT (26.0-36.3) seconds Sodium 141 (135-145) mmol/L Potassium 3.6 (3.5-5.0) mmol/L Chloride 107 (101-111) mmol/L Carbon Dioxide 22 (22-32) mmol/L Anion Gap 12 H (2-11) mmol/L BUN 17 (6-24) mg/dL Creatinine 0.78 (0.51-0.95) mg/dL Est GFR ( Amer) 86.4 (>60) Est GFR (Non-Af Amer) 71.4 (>60) BUN/Creatinine Ratio 21.8 H (8-20) Glucose 209 H (70-100) mg/dL Lactic Acid 2.8 H* (0.5-2.0) mmol/L Calcium 9.1 (8.6-10.3) mg/dL Total Bilirubin 0.70 (0.2-1.0) mg/dL AST 17 (13-39) U/L ALT 13 (7-52) U/L Alkaline Phosphatase 93 (34-104) U/L Troponin I 0.01 (<0.04) ng/mL B-Natriuretic Peptide ( - 100) pg/mL Total Protein 7.1 (6.4-8.9) g/dL Albumin 4.2 (3.2-5.2) g/dL Globulin 2.9 (2-4) g/dL Albumin/Globulin Ratio 1.4 (1-3) TSH 2.72 (0.34-5.60) mcIU/mL Thyroxine (T4) 10.60 (6.09-12.23) mcg/mL Urine Color Urine Appearance Urine pH (5-9) Ur Specific Amigo (1.010-1.030) Urine Protein (Negative) Urine Ketones (Negative) Urine Blood (Negative) Urine Nitrate (Negative) Urine Bilirubin (Negative) Urine Urobilinogen (Negative) Ur Leukocyte Esterase (Negative) Urine WBC (Auto) (Absent) Urine RBC (Auto) (Absent) Ur Squamous Epith Cells (Absent) Urine Bacteria (Absent) Urine Glucose (Negative) 05/21/18 05/21/18 05/21/18 Range/Units 00:49 00:49 02:11 WBC (3.5-10.8) 10^3/ul RBC (4.00-5.40) 10^6/ul Hgb (12.0-16.0) g/dl Hct (35-47) % MCV (80-97) fL MCH (27-31) pg MCHC (31-36) g/dl RDW (10.5-15) % Plt Count (150-450) 10^3/ul MPV (7.4-10.4) um3 Neut % (Auto) (38-83) % Lymph % (Auto) (25-47) % Shelby % (Auto) (0-7) % Eos % (Auto) (0-6) % Baso % (Auto) (0-2) % Absolute Neuts (auto) (1.5-7.7) 10^3/ul Absolute Lymphs (auto) (1.0-4.8) 10^3/ul Absolute Monos (auto) (0-0.8) 10^3/ul Absolute Eos (auto) (0-0.6) 10^3/ul Absolute Basos (auto) (0-0.2) 10^3/ul Absolute Nucleated RBC 10^3/ul Nucleated RBC % INR (Anticoag Therapy) 2.06 H (0.77-1.02) APTT 45.5 H (26.0-36.3) seconds Sodium (135-145) mmol/L Potassium (3.5-5.0) mmol/L Chloride (101-111) mmol/L Carbon Dioxide (22-32) mmol/L Anion Gap (2-11) mmol/L BUN (6-24) mg/dL Creatinine (0.51-0.95) mg/dL Est GFR ( Amer) (>60) Est GFR (Non-Af Amer) (>60) BUN/Creatinine Ratio (8-20) Glucose (70-100) mg/dL Lactic Acid (0.5-2.0) mmol/L Calcium (8.6-10.3) mg/dL Total Bilirubin (0.2-1.0) mg/dL AST (13-39) U/L ALT (7-52) U/L Alkaline Phosphatase (34-104) U/L Troponin I (<0.04) ng/mL B-Natriuretic Peptide 42 ( - 100) pg/mL Total Protein (6.4-8.9) g/dL Albumin (3.2-5.2) g/dL Globulin (2-4) g/dL Albumin/Globulin Ratio (1-3) TSH (0.34-5.60) mcIU/mL Thyroxine (T4) (6.09-12.23) mcg/mL Urine Color Straw Urine Appearance Clear Urine pH 6.0 (5-9) Ur Specific Amigo 1.005 L (1.010-1.030) Urine Protein Negative (Negative) Urine Ketones Negative (Negative) Urine Blood 2+ A (Negative) Urine Nitrate Negative (Negative) Urine Bilirubin Negative (Negative) Urine Urobilinogen Negative (Negative) Ur Leukocyte Esterase Negative (Negative) Urine WBC (Auto) Trace(0-5/hpf) (Absent) Urine RBC (Auto) 1+(3-5/hpf) A (Absent) Ur Squamous Epith Cells Present A (Absent) Urine Bacteria Absent (Absent) Urine Glucose 1+(50 mg/dl) A (Negative) ECG, personally reviewed: AFIB rate 164, mild ST depression V4-6/I/II; CXR, personally reviewed: no acute process ECHO (04/19/2017): Conclusions: Mild to moderate concentric left ventricular hypertrophy is observed. There is normal left ventricular systolic function. The estimated ejection fraction is 55-60%. There is no evidence of aortic stenosis. There is a trace of mitral regurgitation. There is trace tricuspid regurgitation. A trivial pericardial effusion is visualized. Impression: 77F HX AFIB s/p ablation, CAD, HTN, HLD, GERD presents with AFIB/ RVR and 2nd anginal symptoms for r/o ACS DIAGNOSIS & PLAN Primary AFIB/RVR : rate control via diltiazem GTT : continue rivaroxaban : if not spontaneously converted to NSR, consider cardiology consult in AM chest pain r/o ACS; HX CAD : telemetry : aspirin given in ED : trend troponin : supplemental oxygen : supportive care : if troponins negative, may consider D/C for PCP follow up : otherwise, consider cardiology consult in AM Secondary HTN : continue enalapril, diltiazem, & carvedilol HLD : continue rosuvastatin GERD : continue omeprazole Admission Rational: observation for AFIB & r/o ACS DVTp: continue rivaroxaban Code Status: full [facility] [phone]
[2018-05-21] MEDS ORDERED: Acetaminophen TAB* 325 MG PO PRN (03:01)
[2018-05-21] MEDS: Ondansetron ODT TAB* 4 MG PO PRN ×2 (04:53→12:29)
[2018-05-21 06:30] LABS: ABS Basophils 0.1 10^3/ul (0-0.2); ABS Eosinophils 0.2 10^3/ul (0-0.6); ABS Lymphocytes 2.9 10^3/ul (1.0-4.8); ABS Monocytes 0.7 10^3/ul (0-0.8); ABS Neutrophils 8.2 10^3/ul (1.5-7.7); ABS Nucleated RBC 0 10^3/ul; Hematocrit 36 % (35-47); Hemoglobin 12.1 g/dl (12.0-16.0); Lymphocyte % 23.9 % (25-47); Mean Corpuscular HGB Conc 33 g/dl (31-36); Mean Corpuscular Hemoglobin 26 pg (27-31); Mean Corpuscular Volume 78 fL (80-97); Mean Platelet Volume 9.6 um3 (7.4-10.4); Nucleated Red Blood Cells % 0.1; Platelet Count 231 10^3/ul (150-450); Red Blood Count 4.68 10^6/ul (4.00-5.40); Red Cell Distribution Width 15 % (10.5-15); White Blood Count 12.2 10^3/ul (3.5-10.8)
--- NOTE | 2018-05-21 07:26 | RAD ---
HISTORY: CP rapid heart rate COMPARISONS: April 08, 2017 VIEWS: 1: frontal portable view of the chest at 1:02 AM FINDINGS: LINES AND TUBES: None. CARDIOMEDIASTINAL SILHOUETTE: The cardiomediastinal silhouette is normal for portable technique. PLEURA: The costophrenic angles are sharp. No pleural abnormalities are noted. LUNG PARENCHYMA: The lungs are clear. ABDOMEN: The upper abdomen is clear. There is no subphrenic gas. BONES AND SOFT TISSUES: No bone or soft tissue abnormalities are noted. IMPRESSION: NO ACTIVE CARDIOPULMONARY DISEASE. R0
[2018-05-21] MEDS ORDERED: Omeprazole CAP* 20 MG PO SCH (07:30)
[2018-05-21] MEDS ORDERED: Diltiazem CD CAP* 180 MG PO SCH (09:00)
[2018-05-21] MEDS ORDERED: Rivaroxaban TAB(*) 20 MG TAB PO SCH (09:00)
[2018-05-21] MEDS ORDERED: Potassium Chlor TAB* 20 MEQ TAB.ER PO SCH (09:00)
[2018-05-21] MEDS ORDERED: Enalapril TAB* 5 MG PO SCH (09:00)
[2018-05-21] MEDS ORDERED: Carvedilol TAB* 25 MG PO SCH ×2 (09:00→21:00)
[2018-05-21] MEDS ORDERED: Atorvastatin* 40 MG TAB PO SCH (17:00)
[2018-05-21] MEDS ORDERED: Mometasone 220 MCG MDI INH SCH (18:00)
[2018-05-21 19:59] VITALS: BP 109/48
--- NOTE | 2018-05-22 03:10 | DS ---
CC: Dr. Mumtaz Yoder; Dr. Bong Mcelroy from Cardiology at [place] * DISCHARGE SUMMARY: DATE OF ADMISSION: 05/21/18 DATE OF DISCHARGE: 05/21/18 MY ATTENDING FOR TODAY: Dr. Marcus Jamison.* (DICTATED BY LIZ CHENEY , MICHOACANO) HOSPITAL COURSE: This is a pleasant 77-year-old female patient who presented to the emergency department on the early years teacher of 05/21/18 with a complaint of palpitations and chest pressure with associated shortness of breath, nausea, and sweating. The patient has had a history of paroxysmal AFib, she was status post ablation, on rivaroxaban; however, when the symptoms persisted, she came to the emergency department evaluation where she was found to be persistently in AFib with RVR. The patient was started on diltiazem drip, we continued her rivaroxaban, she spontaneously converted to regular sinus rhythm at approximately 6:40 this morning, her chest pain resolved. She received aspirin. Her troponins were negative and otherwise no changes on her EKG. She also does have some history of hypertension. Her only change was after she converted to regular sinus she became bradycardic. We had a lengthy discussion regarding her heart rate and her current medication. She does take carvedilol 25 mg 2 times a day. We decreased that to 12.5 mg 2 times a day and requested the patient follow up with her programmer analyst, Dr. Mcelroy this week. Again, troponins were negative. No acute changes on EKG. The patient was feeling well with no complaints. Of significant note, her lactic acid was mildly elevated, 2.8 and 2.1, however, this is likely secondary to AFib as she is not febrile and not appearing toxic. TSH was 2.72. Rest of her labs were pretty much unremarkable. BNP was also normal. DISCHARGE DIAGNOSES: 1. Paroxysmal atrial fibrillation with rapid ventricular response. 2. History of hypertension. 3. History of gastroesophageal reflux disease. 4. Hyperlipidemia. DISCHARGE MEDICATIONS: Include: 1. Diltiazem 360 mg extended release. 2. Crestor 20 mg p.o. daily. 3. Xarelto 20 mg daily. 4. K-Chlor 20 mEq daily. 5. Omeprazole 20 mg daily. 6. Fluticasone Diskus 1 puff inhale 2 times a day. 7. Enalapril 10 mg daily. 8. Carvedilol 12.5 mg p.o. b.i.d. REVIEW OF SYSTEMS: On day of discharge, the patient has no complaints. She offers no complaint of chest pain, no shortness of breath, no fevers, no chills , no nausea, no vomiting, no sweating, no weakness and essentially feels at her baseline. PHYSICAL EXAM: Vital signs are blood pressure 123/71, heart rate 78, regular sinus rhythm, respiratory rate 20, O2 saturation 97% on room air with a temperature of 97.7. HEENT: The patient is atraumatic, normocephalic. PERRLA with nonicteric sclerae. Neck is supple, nontender. No JVD noted. No carotid bruit auscultated. Cardiovascular: S1, S2 present. No murmurs, gallops, or rubs noted. Rate and rhythm are currently regular. No ectopy on telemetry and regular sinus rhythm. Lungs are clear bilaterally to auscultation with no wheezing, rhonchi, or rales. Abdomen is soft, nontender, and nondistended. Positive bowel sounds in all 4 quadrants. was deferred. Musculoskeletal: There is no clubbing, no cyanosis, and no pedal edema. She has +2 distal pulses palpable. Steady gait and full range of motion. Neurologic: Grossly intact with no new focality. Psychiatric: She is cooperative and appropriate. LABORATORY DATA: Abnormals as noted above. Imaging: Chest x-ray dated 05/21/18 shows no active cardiopulmonary disease. DISPOSITION: Patient discharged to home in stable condition. DIET: The patient was instructed to have a heart-healthy diet. FOLLOWUPS: With Dr. Mumtaz Yoder, the patient's primary care provider, as needed and her programmer analyst she should see this week to have her heart rate and blood pressure checked. Again, her heart rate was slightly bradycardic, so we decreased her beta-minnie and she was instructed to follow up for medication management closely with her programmer analyst at discharge. She was also told to return to the emergency department if she had any further palpitations, chest pain, dizziness, or other symptoms of her atrial fibrillation or any acute coronary syndrome. The patient was discharged in stable condition. She states that she will call her [id number] for transport back home. The patient states understanding of her discharge plan and diagnoses. LIZ CHENEY, MICHOACANO [id number]/[facility] #: [id number] [facility] MEDICAL CENTERLupe
== END 2018-05-21 20:05 | disposition home or self-care (01) ==
LOC: ED 00:30 → MEDTELE 02:46
PROVIDERS: ADMIT Hospitalist; ATTEND Student in an Organized Health Care Education/Training Program
DX: I48.0 Paroxysmal atrial fibrillation (principal); I10 Essential (primary) hypertension; E78.5 Hyperlipidemia, unspecified; R42 Dizziness and giddiness; R00.2 Palpitations; K21.9 Gastro-esophageal reflux disease without esophagitis; I25.10 Atherosclerotic heart disease of native coronary artery without angina pectoris; Z79.01 Long term (current) use of anticoagulants
CPT/HCPCS: 36415; 71045; 80053; 81003; 81015; 83605; 83880; 84436; 84443; 84484; 85025; 85610; 85730; 87086; 93005; 94640; 99285; A9270-GY; G0378; J2405

== ENCOUNTER 2018-06-25 10:29 | Emergency (ER) | payer MEDICARE ==
--- NOTE | 2018-06-25 11:41 | UC ---
Lower Extremity/Ankle HPI - HPI Summary HPI Summary: 77 y/o female on xarelto, c/o pain in anterior espinosa after being hit by toy about 9 days ago. pain with walking long distances, improved with sitting/ elevation. no pain with movement of toes passively. - History of Current Complaint Chief Complaint: UCLowerExtremity Stated Complaint: LEG INJURY Time Seen by Provider: 06/25/18 11:31 Hx Obtained From: Patient ?: No Onset/Duration: Sudden Onset, Lasting Days Severity Initially: Severe Severity Currently: Moderate Pain Intensity: 5 Pain Scale Used: 0-10 Numeric Aggravating Factor(s): Standing, Ambulation Alleviating Factor(s): Rest, Elevation, Ice Able to Bear Weight: Yes - painful with walking longer distances - Allergies/Home Medications Allergies/Adverse Reactions: Allergies Allergy/AdvReac Type Severity Reaction Status Date / Time codeine Allergy See Comment Verified 06/25/18 10:40 Penicillins AdvReac Hives Verified 06/25/18 10:40 tramadol AdvReac Rash Verified 06/25/18 10:40 MUSHROOMS Allergy RASH, Uncoded 06/25/18 10:40 THROAT CLOSES PMH/Surg Hx/FS Hx/Imm Hx Previously Healthy: No - a fib - Surgical History Surgical History: Yes Surgery Procedure, Year, and Place: 1996, CARDIAC ABLATION, [facility]. TONSILECTOMY A CHILD. [place]ENDECTOMY [place] CHILD. [place], 1970, [facility] [place] both eyes. HIATAL HERNIA 1983, [facility] [place]. HYSTERECTOMY, 1968 PARTIAL, 1973, COMPLETE. CYSTS FROM GROIN, 2009, [facility] - Family History Known Family History: Positive: Cardiac Disease, Hypertension - Social History Alcohol Use: Rare Alcohol Amount: 1 Q 2-3 MONTHS Substance Use Type: None Smoking Status (MU): Never Smoked Tobacco Have You Smoked in the Last Year: No - Immunization History Most Recent Influenza Vaccination: 2014 Most Recent Tetanus Shot: uncertain Most Recent Pneumonia Vaccination: 2013 Review of Systems Motor: Decreased ROM Musculoskeletal: Arthralgia, Edema, Myalgia Is Patient Immunocompromised?: No All Other Systems Reviewed And Are Negative: Yes Physical Exam Triage Information Reviewed: Yes Appearance: Well-Appearing, No Pain Distress, Well-Nourished Vital Signs: Initial Vital Signs Temp 98 F 06/25/18 10:37 Pulse 77 06/25/18 10:37 Resp 16 06/25/18 10:37 BP 134/63 06/25/18 10:37 Pulse Ox 100 06/25/18 10:37 Vital Signs Reviewed: Yes Eyes: Positive: Conjunctiva Clear Musculoskeletal: Positive: Edema @ - minimal edema noted surrounding hematoma and extending to lat mal Neurological Exam: Normal Psychological Exam: Normal Skin: Positive: Other - ~ 3cm hematoma over espinosa with old bruising noted down to ankle. Lower Extremity Course/Dx - Course Course Of Treatment: radiograph negative for fracture, compression, decreased ROM, RICE, continue to monitor, follow up with ortho if no improvement. - Differential Dx/Diagnosis Provider Diagnoses: contusion Discharge - Sign-Out/Discharge Documenting (check all that apply): Patient Departure All imaging exams completed and their final reports reviewed: Yes - Discharge Plan Condition: Good Disposition: HOME Patient Education Materials: Contusion in Adults (ED) Referrals: Bong Fajardo MD [Medical Doctor] - Mumtza Yoder MD [Primary Care Provider] - Additional Instructions: - tylenol as needed for pain - Elevate, ice, wrap for compression/ comfort - Go to ER immediately with cold foot, decreased sensation, increased pain, or pain with moving toes - follow up with orthopedics within 2-3 days if no improvement - Billing Disposition and Condition Condition: GOOD Disposition: Home
--- NOTE | 2018-06-25 12:33 | RAD ---
Indication: Anterior to mid tibia RIGHT lower leg pain following injury 9 days ago. Hematoma. Comparison: March 10, 2009 ankle radiographs. Technique: AP and lateral views RIGHT lower leg. REPORT AND IMPRESSION: #. Negative for fracture or malalignment. Anteromedial soft tissue swelling at the level of the mid diaphysis. No conspicuous foreign body or subcutaneous emphysema.
[2018-06-25 13:05] VITALS: BP 124/56
== END 2018-06-25 13:03 | disposition home or self-care (01) ==
LOC: UCEAST 10:29
DX: S80.11XA Contusion of right lower leg, initial encounter (principal); W22.8XXA Striking against or struck by other objects, initial encounter; Y93.9 Activity, unspecified; Y92.9 Unspecified place or not applicable; I48.91 Unspecified atrial fibrillation; Z79.01 Long term (current) use of anticoagulants; Z88.5 Allergy status to narcotic agent; Z88.0 Allergy status to penicillin
CPT/HCPCS: 99211; G0463

== ENCOUNTER 2024-05-26 22:44 | Observation (INO) ==
[2024-05-26] MEDS: Iodixanol (CONTRAST) 320 MG/ML 100 ML SDV IV ONE (23:12)
[2024-05-26 23:13] LABS: ABS Eosinophils 0.2 10^3/uL (0.0-0.5); ABS Monocytes 0.6 10^3/uL (0.0-0.9); ABS Neutrophils 7.2 10^3/uL (1.5-7.6); Eosinophil % 1.8 %; Hematocrit 38.8 % (35-45); Lymphocyte % 27.1 %; Mean Corpuscular Hemoglobin 26.2 pg (27-33); Mean Corpuscular Hgb Conc 33.4 g/dL (31-36); Mean Corpuscular Volume 78.3 fL (80-97); Mean Platelet Volume 9.7 fL (7.5-11.2); Platelet Count 242 10^3/uL (150-450); Red Blood Count 4.96 10^6/uL (3.63-4.92); Red Cell Distribution Width 15.9 % (12-17)
[2024-05-26 23:24] LABS: INR 1.36 (0.85-1.14)
[2024-05-27 00:13] LABS: Albumin/Globulin Ratio 1.5 (1-3); Calcium 9.1 mg/dL (8.6-10.3); Creatinine, Serum 0.76 mg/dL (0.51-0.95); Globulin 2.6 g/dL (2-4); Potassium 3.7 mmol/L (3.5-5.0); Total Bilirubin 0.5 mg/dL (0.2-1.0); Total Protein 6.6 g/dL (6.4-8.9); eGFR CKD-EPI 77.2 (>60)
[2024-05-27 00:52] LABS: High Sensitivity Troponin 1 Hr 4 pg/mL (<15)
[2024-05-27] MEDS ORDERED: Albuterol HFA INHALER 8 gm MDI INH PRN (02:33)
[2024-05-27] MEDS: Triamcinolone 0.025% OINT 15 GM TUBE TOPICAL SCH (09:30)
[2024-05-27 10:31] LABS: HDL Cholesterol 36.4 mg/dL
[2024-05-27] MEDS: Calcium Carb (TUMS) 500 mg CHEW TAB PO PRN (16:43)
[2024-05-28 09:36] VITALS: BP 145/58
== END 2024-05-28 10:55 | disposition home or self-care (01) ==
LOC: EDHOLD 22:44 → ED 22:44 → SUATTDRO 05-27 02:19 → MED 05-27 03:49
PROVIDERS: ADMIT Internal Medicine; ATTEND Internal Medicine